=== PATIENT | male | born 1985 | race African-American/Black ===

== ENCOUNTER 2022-06-17 01:37 | Observation (INO) | payer BC, SELFPAY ==
[2022-06-17 02:46] LABS: #Eosinphils 0.1 thou/uL (0.0-0.7); #Lymphocytes 2.6 thou/uL (1.20-3.40); #Monocytes 0.6 thou/uL (0.11-0.59); #Neutrophils 3.1 thou/uL (1.40-6.50); %Basophils 0.6 % (0.0-1.0); %Eosinophils 1.6 % (0.0-10.0); %Lymphocytes 40.2 % (21.0-51.0); %Monocytes 8.9 % (0.0-10.0); %Neutrophils 48.6 % (42.0-75.0); Hemoglobin 13.7 g/dL (14.0-18.0); Mean Corpuscular Hemoglobin 32.5 pg (27.0-31.0); Mean Corpuscular Volume 93.1 fl (78.0-98.0); Mean Platelet Volume 7.2 fL (7.4-10.4); Platelet Count 206 10x3/uL (130-400); RBC Distribution Width 11.1 % (11.5-14.5); White Blood Cell (WBC) Count 6.4 10x3/uL (4.8-10.8)
[2022-06-17 02:58] LABS: PTT 23.7 sec (22.9-36.1); Prothrombin Time 13.2 sec (12.0-14.7)
[2022-06-17 03:09] LABS: ALT (SGPT) 61 U/L (8-55); AST (SGOT) 36 U/L (5-34); Alkaline Phosphatase 63 U/L (40-110); Anion Gap 12 mmol/L (10-20); BUN (Urea Nitrogen) 9 mg/dL (8.9-20.6); Bilirubin, Total 0.3 mg/dL (0.2-1.2); Calc. Creatinine Clearance 0 mL/min (70-130); Calcium 9.1 mg/dL (7.8-10.44); Carbon Dioxide 24 mmol/L (22-29); Chloride 106 mmol/L (98-107); Estimated GFR 75; Globulin 2.8 g/dL (2.4-3.5); Glucose 92 mg/dL (70-105); Potassium 3.9 mmol/L (3.5-5.1); Protein, Total 6.8 g/dL (6.0-8.3); Sodium 138 mmol/L (136-145)
[2022-06-17] MEDS ORDERED: Acetaminophen 650 MG Suppository PR PRN (03:54)
[2022-06-17] MEDS ORDERED: Ondansetron ODT 4 MG TAB PO PRN (03:54)
[2022-06-17] MEDS ORDERED: Acetaminophen 325 MG TAB PO PRN (03:54)
[2022-06-17] MEDS ORDERED: Ondansetron PF 4 MG/2 ML Vial IVP PRN (03:54)
[2022-06-17] MEDS ORDERED: hydrALAZINE 20 MG/ML VIAL SLOW IVP PRN (03:54)
[2022-06-17] MEDS ORDERED: Aspirin 81 mg Enteric Coated Tablet PO SCH (09:00)
[2022-06-17 12:22] LABS: HBCM Index 0.06 S/CO (0-0.79); HBSAg Index 0.29 S/CO (0-0.99); Hep A IgM AB Non-Reactive (NonReactive); Hep A IgM S/CO 0.18 S/CO (0-0.79); Hep B Surf Ag Non-Reactive S/CO (NonReactive); Hep C IgG Ab Non-Reactive (NonReactive); Hepatitis B Core IgM Abs Non-Reactive (NonReactive)
[2022-06-17] MEDS ORDERED: Iopamidol-370 76% 500 ML MDV (1 ML CHARGE) ONE (15:13)
[2022-06-17] MEDS ORDERED: Atorvastatin Calcium 40 MG TAB PO SCH (21:00)
[2022-06-18] MEDS ORDERED: Aspirin 81 mg Enteric Coated Tablet PO SCH (09:00)
[2022-06-18] MEDS ORDERED: Amlodipine 5 MG TAB PO SCH (09:00)
== END 2022-06-17 16:15 | disposition home or self-care (01) ==
LOC: ERS 01:37 → ERHOLD 02:48
PROVIDERS: ADMIT Hospitalist; ATTEND Hospitalist
DX: R20.2 Paresthesia of skin (principal); R42 Dizziness and giddiness; H53.8 Other visual disturbances; R74.01 Elevation of levels of liver transaminase levels; I11.9 Hypertensive heart disease without heart failure; M48.02 Spinal stenosis, cervical region; Z86.73 Personal history of transient ischemic attack (TIA), and cerebral infarction without residual deficits; Z79.82 Long term (current) use of aspirin; Z79.899 Other long term (current) drug therapy
CPT/HCPCS: 36415; 70450; 70496; 70498; 70551; 76705; 80053; 80074; 85025; 85610; 85730; 93005; G0378; Q9967

== ENCOUNTER 2022-06-24 00:03 | Emergency (ER) | payer BC ==
[2022-06-24 00:34] LABS: #Basophils 0.1 thou/uL (0.0-0.2); #Eosinphils 0.1 thou/uL (0.0-0.7); #Lymphocytes 2.8 thou/uL (1.20-3.40); #Monocytes 0.5 thou/uL (0.11-0.59); #Neutrophils 2.7 thou/uL (1.40-6.50); %Basophils 1.3 % (0.0-1.0); %Eosinophils 1.5 % (0.0-10.0); %Lymphocytes 45.7 % (21.0-51.0); %Monocytes 7.3 % (0.0-10.0); %Neutrophils 44.2 % (42.0-75.0); Hemoglobin 15.1 g/dL (14.0-18.0); Mean Corpuscular Hemoglobin 33.6 pg (27.0-31.0); Mean Corpuscular Volume 93.4 fl (78.0-98.0); Mean Platelet Volume 7.1 fL (7.4-10.4); Platelet Count 215 10x3/uL (130-400); RBC Distribution Width 11.3 % (11.5-14.5); White Blood Cell (WBC) Count 6.2 10x3/uL (4.8-10.8)
[2022-06-24] MEDS ORDERED: Ketorolac Tromethamine 30 MG/ML VIAL ONE (00:41)
[2022-06-24] MEDS ORDERED: Metoclopramide HCl 10 MG/2 ML VIAL ONE (00:41)
[2022-06-24 00:42] LABS: Prothrombin Time 13.3 sec (12.0-14.7)
[2022-06-24 00:58] LABS: ALT (SGPT) 60 U/L (8-55); AST (SGOT) 37 U/L (5-34); Albumin 4.6 g/dL (3.5-5.0); Alkaline Phosphatase 75 U/L (40-110); Anion Gap 16 mmol/L (10-20); BUN (Urea Nitrogen) 7 mg/dL (8.9-20.6); Bilirubin, Total 0.4 mg/dL (0.2-1.2); Calc. Creatinine Clearance 0 mL/min (70-130); Calcium 9.9 mg/dL (7.8-10.44); Carbon Dioxide 20 mmol/L (22-29); Chloride 108 mmol/L (98-107); Estimated GFR 82; Glucose 88 mg/dL (70-105); Potassium 3.8 mmol/L (3.5-5.1); Protein, Total 7.6 g/dL (6.0-8.3); Sodium 140 mmol/L (136-145)
[2022-06-24] MEDS ORDERED: Iopamidol-370 76% 500 ML MDV (1 ML CHARGE) ONE (10:44)
== END 2022-06-24 02:15 | disposition home or self-care (01) ==
LOC: ERS 00:03
DX: R53.1 Weakness (principal); G43.909 Migraine, unspecified, not intractable, without status migrainosus; I10 Essential (primary) hypertension; Z86.73 Personal history of transient ischemic attack (TIA), and cerebral infarction without residual deficits
CPT/HCPCS: 70450; 70496; 70498; 80053; 84484; 85025; 85610; 85730; 93005; 94760; 96374; 96375; J1885; J2765; Q9967

== ENCOUNTER 2022-10-07 23:17 | Emergency (ER) | payer BC ==
[2022-10-07] MEDS ORDERED: Ketorolac Tromethamine 30 MG/ML VIAL ONE (23:48)
[2022-10-08 00:33] LABS: #Monocytes 0.6 thou/uL (0.11-0.59); #Neutrophils 4.3 thou/uL (1.40-6.50); %Basophils 0.3 % (0.0-1.0); %Eosinophils 0.4 % (0.0-10.0); %Lymphocytes 26.8 % (21.0-51.0); %Monocytes 8.1 % (0.0-10.0); %Neutrophils 64.3 % (42.0-75.0); Hematocrit 37.6 % (42.0-52.0); Hemoglobin 13.3 g/dL (14.0-18.0); Mean Corpuscular HGB CONC 35.4 g/dL (32.0-36.0); Mean Corpuscular Hemoglobin 31.9 pg (27.0-31.0); Mean Corpuscular Volume 90.2 fl (78.0-98.0); Mean Platelet Volume 9.3 fL (7.4-10.4); Platelet Count 233 10x3/uL (130-400); RBC Distribution Width 12.2 % (11.5-14.5); Red Blood Cell (RBC) Count 4.17 mill/uL (4.70-6.10); White Blood Cell (WBC) Count 6.8 10x3/uL (4.8-10.8)
[2022-10-08 00:59] LABS: ALT (SGPT) 25 U/L (8-55); AST (SGOT) 22 U/L (5-34); Alkaline Phosphatase 53 U/L (40-110); Anion Gap 12 mmol/L (10-20); BUN (Urea Nitrogen) 8 mg/dL (8.9-20.6); Bilirubin, Total 0.4 mg/dL (0.2-1.2); CK (CPK) 392 U/L (30-200); Calc. Creatinine Clearance 0 mL/min (70-130); Calcium 9.7 mg/dL (7.8-10.44); Carbon Dioxide 23 mmol/L (22-29); Chloride 107 mmol/L (98-107); Estimated GFR 81; Glucose 106 mg/dL (70-105); Potassium 3.5 mmol/L (3.5-5.1); Sodium 138 mmol/L (136-145)
== END 2022-10-08 01:20 | disposition home or self-care (01) ==
LOC: ERS 23:17
DX: M94.0 Chondrocostal junction syndrome [Tietze] (principal)
CPT/HCPCS: 36415; 71045; 80053; 82550; 84484; 85025; 93005; 96374; J1885

== ENCOUNTER 2024-02-24 04:48 | Emergency (ER) | payer BC ==
[2024-02-24] MEDS ORDERED: Ondansetron PF 4 MG/2 ML Vial ONE (05:12)
[2024-02-24] MEDS ORDERED: Ketorolac Tromethamine 30 MG (1 mL) VIAL ONE (05:12)
[2024-02-24] MEDS ORDERED: Morphine 4 MG/ML VIAL ONE (05:31)
[2024-02-24 05:41] LABS: Bacteria/HPF None Seen HPF (None Seen); Bilirubin Negative (Negative); Blood, Urine Negative (Negative); CAUTI Indications for Culture Pelvic or flank pain; Clarity Clear (Clear); Glucose, Urine (Dipstick) Normal (Negative); Ketone, Urine Negative (Negative); Leukocyte Negative Leu/uL (Negative); Nitrite Negative (Negative); Protein, Urine (Dipstick) Negative (Neg-Trace); RBC/HPF 0-3 HPF (0-3); Specific Gravity, Urine 1.025 (1.002-1.036); Squamous Epithelial 0-3 HPF (0-3); Urobilinogen Normal mg/dL (Less than 2); WBC/HPF 0-3 HPF (0-3)
[2024-02-24 05:43] LABS: Urine Culture Reflex No No
[2024-02-24 05:47] LABS: #Basophils 0.03 10x3/uL (0.0-0.2); %Basophils 0.4 % (0.0-1.0); %Eosinophils 0.9 % (0.0-10.0); %Lymphocytes 23.8 % (21.0-51.0); %Monocytes 8.3 % (0.0-10.0); %Neutrophils 66.3 % (42.0-75.0); Hematocrit 43.1 % (42.0-52.0); Mean Corpuscular HGB CONC 34.8 g/dL (32.0-36.0); Mean Corpuscular Hemoglobin 31.4 pg (27.0-31.0); Mean Corpuscular Volume 90.4 fL (78.0-98.0); Mean Platelet Volume 9.1 fL (7.4-10.4); Platelet Count 233 10x3/uL (130-400); RBC Distribution Width 11.8 % (11.5-14.5); Red Blood Cell (RBC) Count 4.77 mill/uL (4.70-6.10)
[2024-02-24 06:10] LABS: ALT (SGPT) 21 U/L (8-55); AST (SGOT) 21 U/L (5-34); Albumin 4.1 g/dL (3.5-5.0); Alkaline Phosphatase 59 U/L (40-110); Anion Gap 13 mmol/L (10-20); BUN (Urea Nitrogen) 9 mg/dL (8.9-20.6); Bilirubin, Total 0.3 mg/dL (0.2-1.2); Calc. Creatinine Clearance 0 mL/min (70-130); Calcium 9.2 mg/dL (7.8-10.44); Carbon Dioxide 23 mmol/L (22-29); Chloride 107 mmol/L (98-107); Estimated GFR 74; Globulin 3.5 g/dL (2.4-3.5); Glucose 129 mg/dL (70-105); Lipase 26 U/L (8-78); Potassium 3.8 mmol/L (3.5-5.1); Protein, Total 7.6 g/dL (6.0-8.3); Sodium 139 mmol/L (136-145)
[2024-02-24 06:12] LABS: Troponin I Less than 0.010 ng/mL (< 0.028)
[2024-02-24] MEDS ORDERED: Iopamidol-370 76% 500 ML MDV (1 ML CHARGE) ONE (14:44)
== END 2024-02-24 10:35 | disposition home or self-care (01) ==
LOC: ERS 04:48
DX: K52.9 Noninfective gastroenteritis and colitis, unspecified (principal); K59.00 Constipation, unspecified; I10 Essential (primary) hypertension; E78.00 Pure hypercholesterolemia, unspecified; Z55.6 Problems related to health literacy; Z79.899 Other long term (current) drug therapy
CPT/HCPCS: 74177; 76705; 80053; 81001; 83690; 84484; 85025; 93005; 96374; 96375; J1885; J2272; J2405; Q9967

== ENCOUNTER 2024-12-26 16:47 | Emergency (ER) | payer BC ==
[~2024-12-26 16:47] MED LIST: Iopamidol-370 76% 500 ML MDV (1 ML CHARGE) ONE
[2024-12-26] MEDS ORDERED: Ketorolac Tromethamine 30 MG (1 mL) VIAL ONE (17:50)
[2024-12-26] MEDS ORDERED: diphenhydrAMINE 50 MG/ML VIAL ONE (17:50)
[2024-12-26] MEDS ORDERED: Metoclopramide HCl 10 MG (2 mL) VIAL ONE (17:50)
[2024-12-26 18:23] LABS: #Basophils 0.03 10x3/uL (0.0-0.2); #Eosinophils 0.10 10x3/uL (0.0-0.7); #Monocytes 0.56 10x3/uL (0.11-0.59); #Neutrophils 2.98 10x3/uL (1.40-6.50); %Basophils 0.5 % (0.0-1.0); %Eosinophils 1.8 % (0.0-10.0); %Lymphocytes 33.6 % (21.0-51.0); %Monocytes 10.1 % (0.0-10.0); %Neutrophils 53.8 % (42.0-75.0); Hematocrit 40.0 % (42.0-52.0); Hemoglobin 13.6 g/dL (14.0-18.0); Mean Corpuscular Hemoglobin 30.7 pg (27.0-31.0); Mean Corpuscular Volume 90.3 fL (78.0-98.0); Platelet Count 246 10x3/uL (130-400); Red Blood Cell (RBC) Count 4.43 mill/uL (4.70-6.10); White Blood Cell (WBC) Count 5.54 10x3/uL (4.8-10.8)
[2024-12-26 18:38] LABS: ALT (SGPT) 15 U/L (Less than 45); AST (SGOT) 22 U/L (11-34); Albumin 4.1 g/dL (3.1-4.5); Alkaline Phosphatase 68 U/L (40-110); Anion Gap 16 mmol/L (10-20); BUN (Urea Nitrogen) 8 mg/dL (8.9-20.6); Bilirubin, Total 0.2 mg/dL (0.3-1.2); Calc. Creatinine Clearance 0 mL/min (70-130); Calcium 9.5 mg/dL (7.8-10.44); Carbon Dioxide 22 mmol/L (22-29); Chloride 107 mmol/L (98-107); Globulin 3.2 g/dL (2.4-3.5); Glucose 92 mg/dL (70-105); Potassium 3.7 mmol/L (3.5-5.1); Sodium 141 mmol/L (136-145)
[2024-12-26 18:45] LABS: INR-International Normal Ratio 1.0; PTT 28.2 sec (22.9-36.1); Prothrombin Time 13.0 sec (12.0-14.7)
== END 2024-12-26 21:51 | disposition home or self-care (01) ==
LOC: ERS 16:47
DX: R51.9 Headache, unspecified (principal); E78.5 Hyperlipidemia, unspecified; I10 Essential (primary) hypertension; Z86.73 Personal history of transient ischemic attack (TIA), and cerebral infarction without residual deficits; Z79.899 Other long term (current) drug therapy
CPT/HCPCS: 70450; 70496; 70498; 71045; 80053; 85025; 85610; 85730; 93005; 96374; 96375; J1200; J1885; J2765; Q9967